=== PATIENT | female | born 2000 | race Two or more races ===

== ENCOUNTER 2024-07-02 18:42 | Emergency (ER) | payer OTHER, MEDICAID ==
[~2024-07-02] VITALS: Ht 160 cm; Wt 108.8 kg
[2024-07-02 20:23] VITALS: BP 125/87; PULSE 65; RESP 19; TEMP 98.9; O2SAT 99
--- NOTE | 2024-07-02 22:42 | DVH ---
INDICATION: pain COMPARISON: None TECHNIQUE: CT of the right was performed without contrast. Volume transverse images were obtained a nd reconstructed in multiple planes using bone and soft tissue algorithms. CONTRAST: None Radiation Dose Information: CT Dose: CTDI volume is 7.75 mGy. Dose-length product is 192.52 mGy*cm FINDINGS: The alignment is normal. The joint spaces are normal. There is no fracture, dislocation, or focal osseous lesions. The soft tissues are normal. IMPRESSION: No fracture No bony erosions No drainable fluid
[2024-07-02] MEDS ORDERED: METH4PAK PO (22:46)
--- NOTE | 2024-07-02 22:46 | ED.PDOC ---
Back pain HPI HPI Comments PT STATED SHE HAD 9/10 PAIN TO HER RLE X COUPLE MONTHS, WAS SEEN AT [facility] ON 06/24. PT STATED THE PAIN HAS BECOME WORSE, PT UNABLE TODESCRIBE PAIN AT THIS TIME Chief Complaint: Lower Extremity Time Seen by MD: 19:16 Reviewed Notes: Nurses Notes, Medications, Allergies Allergies: Coded Allergies: NO KNOWN ALLERGIES (Unverified , 07/02/24) Home Meds Active Scripts Methylprednisolone (Medrol Dosepak) 4 Mg Randy, 4 MG PO UD for 6 Days, #21 TAB UAD Prov:GITA KLEIN INFORMATION ANALYST 07/02/24 Information Source: Patient Mode of Arrival: Ambulatory Past Medical History PAST MEDICAL HISTORY: Denies Surgical History: Denies all surgeries SITE INTERPRETER History: No Pertinent SITE INTERPRETER History Family History Family History: Reviewed,noncontributory to illness Social History Smoker: Non-Smoker Alcohol: Denies ETOH Use Drugs: Denies Drug Use Constitutional: denies: chills, diaphoresis, fatigue, fever, malaise, sweats, weakness, others EENTM: denies: blurred vision, double vision, ear bleeding, ear discharge, ear drainage, ear pain, ear ringing, eye pain, eye redness, hearing loss, mouth pain, mouth swelling, nasal discharge, nose bleeding, nose congestion, nose pain, photophobia, tearing, throat pain, throat swelling, voice changes, others Respiratory: denies: cough, hemoptysis, orthopnea, SOB at rest, shortness of breath, SOB with excertion, stridor, wheezing, others Cardiovascular: denies: chest pain, dizzy spells, diaphoresis, Dyspnea on exer tion, edema, irregular heart beat, left arm pain, lightheadedness, palpitations, PND, syncope, others Gastrointestinal: denies: abdomen distended, abdominal pain, blood streaked bowels, constipated, diarrhea, dysphagia, difficulty swallowing, hematemesis, melena, nausea, poor appetite, poor fluid intake, rectal bleeding, rectal pain, vomiting, others Genitourinary: denies: abnormal vagina bleeding, burning, dyspareunia, dysuria, flank pain, frequency, hematuria, incontinence, pain, , vagina discharge, urgency, others Neurological: denies: dizziness, fainting, headache, left sided numbness, left sided weakness, numbness, paresthesia, pre-existing deficit, right sided numbness, right sided weakness, seizure, speech problems, tingling, tremors, weakness, others Musculoskeletal: reports: others (Right foot pain); denies: back pain, gout, joint pain, joint swelling, muscle pain, muscle stiffness, neck pain Integumetry: denies: bruises, change in color, change in hair/nails, dryness, laceration, lesions, lumps, rash, wounds, others Allergic/Immunocompromised: denies: Difficulty Healing, Frequent Infections, Hives, Itching, others Hematologic/Lymphatic: denies: anemia, blood clots, easy bleeding, easy bruising, swollen glands, others Endocrine: denies: excessive hunger, excessive sweating, excessive thirst, excessive urination, flushing, intolerance to cold, intolerance to heat, unexplained weight gain, unexplained weight loss, others Psychiatric: denies: anxiety, bipolar disorder, depression, hopeless, panic disorder, schizophrenia, sleepless, suicidal, others Physical Exam General Appearance: No Apparent Distress, Normal HEENT: Pharynx Normal Neck: Full Range of Motion, Non-Tender Respiratory: Lungs Clear, No Respiratory Distress, Normal Breath Sounds Cardiovascular: No Murmur, Normal Peripheral Pulses, Regular Rate/Rhythm Breast Exam: Deferred Gastrointestinal: Non Tender, Soft Genitalia: Deferred Pelvic: Deferred Rectal: Deferred Extremities: Normal capillary refill, Normal inspection, Normal range of motion, Non-tender, No pedal edema Musculoskeletal : Location: Right Extremity Location: Foot (Moderate tenderness palpated over right foot lateral dorsal aspect. No noted abrasions, lesions, ecchymosis or lacerations trace edema. Positive pedal pulse strength and sensory motion intact) Apperance: Normal Neurologic: Alert, coffee farmer II-XII nml as Tested, No Motor Deficits, Normal Affect, Normal Mood, No Sensory Deficits Cerebellar Function: Normal Reflexes: Normal Skin: Dry, Normal Color, Warm Lymphatic: No Adenopathy Was a procedure done? Was a procedure done?: No Back Pain Differential Dx Differential Diagnosis: Musculoskeletal Pain X-Ray, Labs, Meds, VS Vital Signs Date Time Temp Pulse Resp B/P (MAP) Pulse Ox O2 Delivery O2 Flow Rate FiO2 07/02/24 20:23 98.9 65 19 125/87 (100) 99 98.9 07/02/24 20:23 65 19 99 Room Air 07/02/24 19:37 98.2 72 18 126/77 (93) 97 X-Ray, Labs, Meds, VS Comment CT shows no acute findings or osseous lesions. Advised patient to continue use the boot prescribed by her PCP advised to follow back up consider referral to Podiatry or consider an MRI. Advised on rice [id number] ibuprofen ER return precautions given patient indicates understanding agrees with discharge plan of care. Time of 1ST Reevaluation: 22:44 Reevaluation 1ST: Improved Patient Education/Counseling: Diagnosis, Treatment, Prognosis, Need For Follow Up Family Education/Counseling: No Family Present Departure 1 Departure Time of Disposition: 22:44 Impression: Primary Impression: Sprain of foot, right Qualified Codes: S93.601A - Unspecified sprain of right foot, initial encounter Disposition: HOME / SELF CARE / HOMELESS Condition: Stable e-Prescriptions Methylprednisolone (Medrol Dosepak) 4 Mg Randy 4 MG PO UD for 6 Days, #21 TAB UAD Prov: GITA KLEIN 07/02/24 Discharged With: Self Critical Care Note Critical Care Time?: No Stability Stability form required: GITA Sibley Jul 02, 2024 22:46
== END 2024-07-02 22:52 | disposition home or self-care (01) ==
LOC: ER 18:42
DX: S93.601A Unspecified sprain of right foot, initial encounter (principal); X58.XXXA Exposure to other specified factors, initial encounter; Y93.89 Activity, other specified; Y92.89 Other specified places as the place of occurrence of the external cause; Y99.8 Other external cause status
CPT/HCPCS: 73700